=== PATIENT | female | born 1960 | race Caucasian/White ===

== ENCOUNTER 2016-08-09 14:39 | Emergency (ER) | payer OTHER ==
--- NOTE | 2016-08-09 16:33 | RAD ---
INDICATION: Seizure, head injury. COMPARISON: Comparison is made with a prior CT of the brain from December 27, 2012. TECHNIQUE: Contiguous axial sections of the brain were obtained from the skull base to the vertex without contrast. FINDINGS: The ventricles, cisterns and sulci are within normal limits. There is a small area of decreased density present within the thalamus on the right side which is unchanged from the prior exam suggestive of an old lacunar infarct. No other focal abnormalities or mass effect are seen. There is no evidence for hemorrhage. There is focal soft tissue swelling, alyssa and air within the scalp in the posterior right parietal region consistent with the patient's history of a laceration injury. No fracture is seen. The visualized portion of the paranasal sinuses and mastoid air cells appear clear. IMPRESSION: 1. NO EVIDENCE FOR ACUTE INTRACRANIAL ABNORMALITY. 2. FINDINGS SUGGESTIVE OF AN OLD LACUNAR INFARCT WITHIN THE RIGHT THALAMUS, UNCHANGED.
[2016-08-09 17:15] LABS: Hematocrit 35 % (35-47); Hemoglobin 11.7 g/dl (12.0-16.0); Mean Corpuscular HGB Conc 34 g/dl (31-36); Mean Corpuscular Hemoglobin 32 pg (27-31); Mean Corpuscular Volume 96 fL (80-97); Mean Platelet Volume 7 um3 (7.4-10.4); Red Blood Count 3.64 10^6/ul (4.0-5.4); Red Cell Distribution Width 13 % (10.5-15); White Blood Count 8.4 10^3/ul (3.5-10.8)
[2016-08-09 17:31] LABS: Albumin 3.9 g/dL (3.2-5.2); BUN/Creatinine Ratio 16.3 (8-20); Calcium 8.6 mg/dL (8.6-10.3); EGFR African American 95.4 (>60); EGFR Non-African American 74.2 (>60); Globulin 3.1 g/dL (2-4); Potassium 3.8 mmol/L (3.5-5.0); Total Bilirubin 0.3 mg/dL (0.2-1.0)
--- NOTE | 2016-08-09 17:44 | ED ---
Head Injury - HPI Summary HPI Summary: 55F presents with head laceration s/p hit head on door from seizure. has history of seizures. She hasn't had a seizure in 4 months. She takes topirmate. She has not missed a dosage. She has a mild headache. She denies any visual changes. She is not on blood thinners. She denies any other compliant. - History Of Current Complaint Chief Complaint: EDLacSutureRecheck Stated Complaint: SEIZURE/HIT HEAD/LAC Time Seen by Provider: 08/09/16 15:23 Pain Intensity: 4 - Allergies/Home Medications Allergies/Adverse Reactions: Allergies Allergy/AdvReac Type Severity Reaction Status Date / Time No Known Allergies Allergy Verified 12/27/12 12:14 PMH/Surg Hx/FS Hx/Imm Hx Endocrine/Hematology History: Denies: Hx Anticoagulant Therapy Neurological History: Reports: Hx Seizures Infectious Disease History: No Infectious Disease History: Denies: Traveled Outside the [place] in Last 30 Days - Family History Known Family History: Positive: Cardiac Disease - Social History Alcohol Use: None Substance Use Type: Reports: None Smoking Status (MU): Never Smoked Tobacco Review of Systems Negative: Fever Negative: Chest Pain Negative: Shortness Of Breath Positive: Other - head laceration Positive: Headache All Other Systems Reviewed And Are Negative: Yes Physical Exam Triage Information Reviewed: Yes Vital Signs On Initial Exam: Initial Vitals Temp Pulse Resp BP Pulse Ox 97.6 F 73 18 114/68 100 08/09/16 14:45 08/09/16 14:45 08/09/16 14:45 08/09/16 14:45 08/09/16 14:45 Vital Signs Reviewed: Yes Appearance: Positive: Well-Appearing Skin: Positive: Warm, Dry, Other - 3cm scalp laceration Head/Face: Positive: Normal Head/Face Inspection Eyes: Positive: Normal, EOMI, YESIKA, Conjunctiva Clear ENT: Positive: Normal ENT inspection, Pharynx normal, TMs normal Neck: Positive: Nontender Respiratory/Lung Sounds: Positive: Clear to Auscultation, Breath Sounds Present Cardiovascular: Positive: Normal, RRR Neurological: Positive: Sensory/Motor Intact, Alert, Oriented to Person Place, Time, CN Intact II-III, Heel to Toe, Finger to Nose - [place] Coma Scale Best Eye Response: 4 - Spontaneous Best Motor Response: 6 - Obeys Commands Best Verbal Response: 5 - Oriented Procedures - Laceration/Wound Repair 1 Location: head Description: Linear Anesthesia: Local, 1.0% Length, Depth and Shape: 3cm Irrigated w/ Saline (ccs): 100 Closure: [place] #__ - 3 Diagnostics - Vital Signs Vital Signs Temp Pulse Resp BP Pulse Ox 08/09/16 15:32 97.6 F 73 18 114/68 100 08/09/16 14:45 97.6 F 73 18 114/68 100 - Laboratory Lab Results: Lab Results 08/09/16 08/09/16 Range/Units 17:06 17:06 WBC 8.4 (3.5-10.8) 10^3/ul RBC 3.64 L (4.0-5.4) 10^6/ul Hgb 11.7 L (12.0-16.0) g/dl Hct 35 (35-47) % MCV 96 (80-97) fL MCH 32 H (27-31) pg MCHC 34 (31-36) g/dl RDW 13 (10.5-15) % Plt Count 224 (150-450) 10^3/ul MPV 7 L (7.4-10.4) um3 Neut % (Auto) 76.6 (38-83) % Lymph % (Auto) 16.1 L (25-47) % O'Brien % (Auto) 6.0 (1-9) % Eos % (Auto) 0.8 (0-6) % Baso % (Auto) 0.5 (0-2) % Absolute Neuts (auto) 6.4 (1.5-7.7) 10^3/ul Absolute Lymphs (auto) 1.3 (1.0-4.8) 10^3/ul Absolute Monos (auto) 0.5 (0-0.8) 10^3/ul Absolute Eos (auto) 0.1 (0-0.6) 10^3/ul Absolute Basos (auto) 0 (0-0.2) 10^3/ul Absolute Nucleated RBC 0 10^3/ul Nucleated RBC % 0 Sodium 133 (133-145) mmol/L Potassium 3.8 (3.5-5.0) mmol/L Chloride 103 (101-111) mmol/L Carbon Dioxide 25 (22-32) mmol/L Anion Gap 5 (2-11) mmol/L BUN 13 (6-24) mg/dL Creatinine 0.80 (0.51-0.95) mg/dL Est GFR ( Amer) 95.4 (>60) Est GFR (Non-Af Amer) 74.2 (>60) BUN/Creatinine Ratio 16.3 (8-20) Glucose 99 (70-100) mg/dL Calcium 8.6 (8.6-10.3) mg/dL Total Bilirubin 0.30 (0.2-1.0) mg/dL AST 18 (13-39) U/L ALT 14 (7-52) U/L Alkaline Phosphatase 100 (34-104) U/L Total Protein 7.0 (6.4-8.9) g/dL Albumin 3.9 (3.2-5.2) g/dL Globulin 3.1 (2-4) g/dL Albumin/Globulin Ratio 1.3 (1-3) Result Diagrams: 08/09/16 17:06 08/09/16 17:06 Lab Statement: Any lab studies that have been ordered have been reviewed, and results considered in the medical decision making process. - CT brain CT Interpretation: No Acute Changes - IMPRESSION: 1. NO EVIDENCE FOR ACUTE INTRACRANIAL ABNORMALITY. 2. FINDINGS SUGGESTIVE OF AN OLD LACUNAR INFARCT WITHIN THE RIGHT THALAMUS, UNCHANGED. CT Interpretation Completed By: Radiologist Head Injury Course/Dx Course Of Treatment: 55F presents with head laceration s/p having a seizure. did not miss any of her seizure medication and has not had a seizure in 4 days. hit head on door frame when had the seizure. normal neuro exam. 3 alyssa placed on scalp laceration. CT head normal. labs rbc low will have follow up with primary and neurologist. patient understands and agrees with plan - Diagnoses Differential Diagnosis/HQI/PQRI: Concussion With LOC, Intracranial Bleed, Laceration Provider Diagnoses: Seizure, Scalp laceration Discharge - Discharge Plan Condition: Good Disposition: HOME Patient Education Materials: Staple Care (ED) Referrals: Ciro Bahena MD [Primary Care Provider] - Additional Instructions: Take Tylenol for pain Do not scrub staple area Return to ED, urgent care, or primary in 7-10 days to have alyssa removed Follow up with neurology within 5 days Return to ED if develop signs of infection, severe headache, or any new or worsening symptoms
[2016-08-09 18:31] VITALS: BP 113/64
== END 2016-08-09 18:29 | disposition home or self-care (01) ==
LOC: ED 14:39
DX: S01.91XA Laceration without foreign body of unspecified part of head, initial encounter (principal); R51 Headache; W19.XXXA Unspecified fall, initial encounter; Y93.9 Activity, unspecified; Y92.9 Unspecified place or not applicable; Y99.9 Unspecified external cause status
CPT/HCPCS: 12002; 36415; 70450; 80053; 80201; 85025; 99281

== ENCOUNTER 2016-12-21 10:38 | Emergency (ER) | payer OTHER ==
[2016-12-21 11:49] LABS: Hematocrit 34 % (35-47); Hemoglobin 11.7 g/dl (12.0-16.0); Mean Corpuscular HGB Conc 34 g/dl (31-36); Mean Corpuscular Hemoglobin 33 pg (27-31); Mean Corpuscular Volume 97 fL (80-97); Mean Platelet Volume 7 um3 (7.4-10.4); Red Blood Count 3.55 10^6/ul (4.0-5.4); Red Cell Distribution Width 13 % (10.5-15); White Blood Count 4.2 10^3/ul (3.5-10.8)
[2016-12-21 12:01] LABS: Albumin 3.7 g/dL (3.2-5.2); BUN/Creatinine Ratio 11.9 (8-20); Calcium 8.7 mg/dL (8.6-10.3); EGFR African American 90.2 (>60); EGFR Non-African American 70.1 (>60); Globulin 3.2 g/dL (2-4); Magnesium 2.1 mg/dL (1.9-2.7); Potassium 3.6 mmol/L (3.5-5.0); Total Bilirubin 0.3 mg/dL (0.2-1.0); Total Protein 6.9 g/dL (6.4-8.9)
[2016-12-21 12:49] LABS: Carbamazepine 12.3 mcg/mL (4.0-12.0)
[2016-12-21 12:58] LABS: TSH (Thyroid Stimulating Horm) 7.26 mcIU/mL (0.34-5.60)
[2016-12-21 13:45] VITALS: BP 101/65
[2016-12-21 14:12] LABS: Urine Bacteria Absent (Absent); Urine Bilirubin Negative (Negative); Urine Glucose Negative (Negative); Urine Nitrite Negative (Negative)
--- NOTE | 2016-12-21 16:14 | ED ---
Darrion Higgins Benjamin, scribed for Lew Murcia MD on 12/21/16 at 1105 . Altered Mental Status - HPI Summary HPI Summary: 55yo female RODOLFOA after having a witnessed Sz episode today at work. Pt doesnt recall her episode and pt didnt remember warning signs prior to her episodes. Pt states that stress is usually the trigger, and admits that she has been stressed lately. Hx of epilepsy but no changes in epileptic medications. - History Of Current Complaint Stated Complaint: SEIZURE Time Seen by Provider: 12/21/16 10:52 Hx Obtained From: Patient, Family/Antique Refinisher - Onset/Duration: Resolved Timing: Intermittent Severity Initially: Mild Severity Currently: None Character: Responsiveness - Seizure Aggravating Factor(s): Other - stress Associated Signs And Symptoms: Positive: Seizure - Allergies/Home Medications Allergies/Adverse Reactions: Allergies Allergy/AdvReac Type Severity Reaction Status Date / Time No Known Allergies Allergy Verified 12/27/12 12:14 PMH/Surg Hx/FS Hx/Imm Hx Endocrine/Hematology History: Denies: Hx Anticoagulant Therapy Neurological History: Reports: Hx Seizures - epilepsy Infectious Disease History: Yes Infectious Disease History: Denies: Traveled Outside the [place] in Last 30 Days - Family History Known Family History: Positive: Cardiac Disease - Social History Occupation: Employed Full-time Lives: With Family Alcohol Use: None Substance Use Type: Reports: None Smoking Status (MU): Never Smoked Tobacco Review of Systems Constitutional: Negative Eyes: Negative ENT: Negative Cardiovascular: Negative Respiratory: Negative Gastrointestinal: Negative Genitourinary: Negative Musculoskeletal: Negative Skin: Negative Neurological: Negative Psychological: Normal All Other Systems Reviewed And Are Negative: Yes Physical Exam Triage Information Reviewed: Yes Vital Signs On Initial Exam: Initial Vitals BP 109/66 12/21/16 10:53 Vital Signs Reviewed: Yes Appearance: Positive: Well-Appearing, No Pain Distress, Well-Nourished Skin: Positive: Warm, Skin Color Reflects Adequate Perfusion, Dry Head/Face: Positive: Normal Head/Face Inspection Eyes: Positive: Normal, EOMI ENT: Positive: Normal ENT inspection, Hearing grossly normal Neck: Positive: Supple, Nontender Respiratory/Lung Sounds: Positive: Clear to Auscultation, Breath Sounds Present Cardiovascular: Positive: RRR, Pulses are Symmetrical in both Upper and Lower Extremities Abdomen Description: Positive: Nontender, Soft Bowel Sounds: Positive: Present Musculoskeletal: Positive: Strength/ROM Intact Neurological: Positive: Sensory/Motor Intact, Alert, Oriented to Person Place, Time Psychiatric: Positive: Affect/Mood Appropriate Diagnostics - Vital Signs Vital Signs Temp Pulse Resp BP Pulse Ox 12/21/16 10:56 81 97 12/21/16 10:54 97.9 F 81 20 109/66 96 12/21/16 10:53 109/66 - Laboratory Lab Results: Lab Results 12/21/16 12/21/16 12/21/16 Range/Units 11:35 11:35 11:35 WBC 4.2 (3.5-10.8) 10^3/ul RBC 3.55 L (4.0-5.4) 10^6/ul Hgb 11.7 L (12.0-16.0) g/dl Hct 34 L (35-47) % MCV 97 (80-97) fL MCH 33 H (27-31) pg MCHC 34 (31-36) g/dl RDW 13 (10.5-15) % Plt Count 254 (150-450) 10^3/ul MPV 7 L (7.4-10.4) um3 Neut % (Auto) 54.6 (38-83) % Lymph % (Auto) 32.8 (25-47) % [place] % (Auto) 9.3 H (1-9) % Eos % (Auto) 2.6 (0-6) % Baso % (Auto) 0.7 (0-2) % Absolute Neuts (auto) 2.3 (1.5-7.7) 10^3/ul Absolute Lymphs (auto) 1.4 (1.0-4.8) 10^3/ul Absolute Monos (auto) 0.4 (0-0.8) 10^3/ul Absolute Eos (auto) 0.1 (0-0.6) 10^3/ul Absolute Basos (auto) 0 (0-0.2) 10^3/ul Absolute Nucleated RBC 0 10^3/ul Nucleated RBC % 0 INR (Anticoag Therapy) 1.00 (0.89-1.11) Sodium 133 (133-145) mmol/L Potassium 3.6 (3.5-5.0) mmol/L Chloride 103 (101-111) mmol/L Carbon Dioxide 23 (22-32) mmol/L Anion Gap 7 (2-11) mmol/L BUN 10 (6-24) mg/dL Creatinine 0.84 (0.51-0.95) mg/dL Est GFR ( Amer) 90.2 (>60) Est GFR (Non-Af Amer) 70.1 (>60) BUN/Creatinine Ratio 11.9 (8-20) Glucose 106 H (70-100) mg/dL Lactic Acid (0.5-2.0) mmol/L Calcium 8.7 (8.6-10.3) mg/dL Magnesium 2.1 (1.9-2.7) mg/dL Total Bilirubin 0.30 (0.2-1.0) mg/dL AST 16 (13-39) U/L ALT 11 (7-52) U/L Alkaline Phosphatase 88 (34-104) U/L Total Protein 6.9 (6.4-8.9) g/dL Albumin 3.7 (3.2-5.2) g/dL Globulin 3.2 (2-4) g/dL Albumin/Globulin Ratio 1.2 (1-3) TSH 7.26 H (0.34-5.60) mcIU/mL Urine Color Urine Appearance Urine pH (5-9) Ur Specific [place] (1.010-1.030) Urine Protein (Negative) Urine Ketones (Negative) Urine Blood (Negative) Urine Nitrate (Negative) Urine Bilirubin (Negative) Urine Urobilinogen (Negative) Ur Leukocyte Esterase (Negative) Urine WBC (Auto) (Absent) Urine RBC (Auto) (Absent) Ur Squamous Epith Cells (Absent) Urine Bacteria (Absent) Urine Glucose (Negative) Carbamazepine 12.3 H (4.0-12.0) mcg/mL 12/21/16 12/21/16 Range/Units 11:35 13:45 WBC (3.5-10.8) 10^3/ul RBC (4.0-5.4) 10^6/ul Hgb (12.0-16.0) g/dl Hct (35-47) % MCV (80-97) fL MCH (27-31) pg MCHC (31-36) g/dl RDW (10.5-15) % Plt Count (150-450) 10^3/ul MPV (7.4-10.4) um3 Neut % (Auto) (38-83) % Lymph % (Auto) (25-47) % [place] % (Auto) (1-9) % Eos % (Auto) (0-6) % Baso % (Auto) (0-2) % Absolute Neuts (auto) (1.5-7.7) 10^3/ul Absolute Lymphs (auto) (1.0-4.8) 10^3/ul Absolute Monos (auto) (0-0.8) 10^3/ul Absolute Eos (auto) (0-0.6) 10^3/ul Absolute Basos (auto) (0-0.2) 10^3/ul Absolute Nucleated RBC 10^3/ul Nucleated RBC % INR (Anticoag Therapy) (0.89-1.11) Sodium (133-145) mmol/L Potassium (3.5-5.0) mmol/L Chloride (101-111) mmol/L Carbon Dioxide (22-32) mmol/L Anion Gap (2-11) mmol/L BUN (6-24) mg/dL Creatinine (0.51-0.95) mg/dL Est GFR ( Amer) (>60) Est GFR (Non-Af Amer) (>60) BUN/Creatinine Ratio (8-20) Glucose (70-100) mg/dL Lactic Acid 1.4 (0.5-2.0) mmol/L Calcium (8.6-10.3) mg/dL Magnesium (1.9-2.7) mg/dL Total Bilirubin (0.2-1.0) mg/dL AST (13-39) U/L ALT (7-52) U/L Alkaline Phosphatase (34-104) U/L Total Protein (6.4-8.9) g/dL Albumin (3.2-5.2) g/dL Globulin (2-4) g/dL Albumin/Globulin Ratio (1-3) TSH (0.34-5.60) mcIU/mL Urine Color Yellow Urine Appearance Turbid Urine pH 7.0 (5-9) Ur Specific [place] 1.013 (1.010-1.030) Urine Protein Negative (Negative) Urine Ketones Negative (Negative) Urine Blood Negative (Negative) Urine Nitrate Negative (Negative) Urine Bilirubin Negative (Negative) Urine Urobilinogen Negative (Negative) Ur Leukocyte Esterase Trace H (Negative) Urine WBC (Auto) Absent (Absent) Urine RBC (Auto) Trace(0-2/hpf) (Absent) Ur Squamous Epith Cells Present H (Absent) Urine Bacteria Absent (Absent) Urine Glucose Negative (Negative) Carbamazepine (4.0-12.0) mcg/mL Result Diagrams: 12/21/16 11:35 12/21/16 11:35 Lab Statement: Any lab studies that have been ordered have been reviewed, and results considered in the medical decision making process. Altered Mental Statu Course/Dx - Course Course Of Treatment: Reviewed pts list of medications and allergies. Blood pressure noted. Assessment/Plan: Ms. Burdick presented with one of her rare (biannual) seizures. She was nontoxic in appearance and her labs and vitals were normal. She is on significant anticonvulsant doses with a supratherapeutic carbamazepine level and will be D/C'd with no med cahnges and a recommendation for F/U with Dr. Garber. - Diagnoses Discharge Diagnoses: Seizure Discharge - Discharge Plan Condition: Stable Disposition: HOME Patient Education Materials: Epilepsy (ED) Referrals: Susie Garber MD [Medical Doctor] - The documentation as recorded by the Darrion mckeon Benjamin accurately reflects the service I personally performed and the decisions made by , Lew Murcia MD.
== END 2016-12-21 13:54 | disposition home or self-care (01) ==
LOC: ED 10:38
DX: R56.9 Unspecified convulsions (principal)
CPT/HCPCS: 36415; 80053; 80156; 81003; 81015; 83605; 83735; 84443; 85025; 85610; 87086; 99283

== ENCOUNTER 2017-05-30 06:37 | Emergency (ER) | payer OTHER ==
[2017-05-30 07:54] LABS: ABS Basophils 0 10^3/ul (0-0.2); ABS Eosinophils 0.2 10^3/ul (0-0.6); ABS Lymphocytes 1.9 10^3/ul (1.0-4.8); ABS Monocytes 0.3 10^3/ul (0-0.8); ABS Neutrophils 1.4 10^3/ul (1.5-7.7); ABS Nucleated RBC 0 10^3/ul; Eosinophil % 4.3 % (0-6); Hematocrit 38 % (35-47); Hemoglobin 12.8 g/dl (12.0-16.0); Lymphocyte % 50.2 % (25-47); Mean Corpuscular HGB Conc 34 g/dl (31-36); Mean Corpuscular Hemoglobin 33 pg (27-31); Mean Corpuscular Volume 98 fL (80-97); Mean Platelet Volume 7 um3 (7.4-10.4); Nucleated Red Blood Cells % 0.2; Platelet Count 254 10^3/ul (150-450); Red Blood Count 3.86 10^6/ul (4.0-5.4); Red Cell Distribution Width 13 % (10.5-15); White Blood Count 3.8 10^3/ul (3.5-10.8)
[2017-05-30 08:05] LABS: EGFR Non-African American 54.6 (>60)
--- NOTE | 2017-05-30 08:21 | RAD ---
INDICATION: Weakness COMPARISON: August 09, 2016 TECHNIQUE: Noncontrast axial source images were acquired from the skull base to the vertex. FINDINGS: Ventricles/sulci: The ventricles and cisterns are normal in size and configuration for age. Brain parenchyma: There is no acute focal parenchymal finding, evidence of intracranial mass, or intracranial mass effect. There is a tiny lacunar type infarct in the right thalamus, unchanged. Intracranial hemorrhage:None. Extra-axial spaces: There are no abnormal extra axial fluid collections or evidence of extra-axial mass. Calvarium: There is no calvarial fracture or other calvarial abnormality. Scalp: There is no evidence of scalp or extracalvarial soft tissue abnormality. Paranasal sinuses/mastoid: The paranasal sinuses and mastoid air cells are clear. Other: None. IMPRESSION: No acute intracranial findings.
--- NOTE | 2017-05-30 08:25 | RAD ---
INDICATION: LEFT side neck pain since yesterday. Slept wrong. Persistent symptoms. COMPARISON: No relevant prior exams available on the [facility] [place] for comparison. TECHNIQUE: Multidetector CT images foramen magnum to lung apices without contrast. Multiplanar reformation. REPORT: Heterogeneous thyroid gland with mildly enlarged LEFT thyroid lobe with dominant 1.1 cm hypodense nodule. Normal vertebral alignment accounting for exam positioning without spondylolisthesis or subluxation at any level. Negative for cervical vertebral body or posterior element fracture. Negative for paravertebral hematoma. Degenerative spondylosis and facet joint osteoarthritis at multiple levels. At C5-C6 there is advanced disc space narrowing and mild dorsal disc osteophyte complex with only minimal impression on the ventral margin of the thecal sac. Congenitally generous pedicles mitigate against acquired central canal stenosis. Uncinate process spurring and facet joint osteoarthritis results in slight RIGHT and moderately severe LEFT osseous foraminal stenosis. IMPRESSION: 1. No evidence for traumatic cervical spine injury. 2. Multilevel degenerative spondylosis and facet joint osteoarthritis most advanced at the C5-C6 level where there is resulting slight RIGHT and moderately severe LEFT osseous foraminal stenosis. 3. If not previously performed with no relevant prior exams available on the [facility] consider thyroid ultrasound for further assessment of noted thyroid nodule.
[2017-05-30] MEDS ORDERED: Ketorolac INJ* 30 MG/ML 1 ML VIAL IM ONE (08:43)
[2017-05-30] MEDS ORDERED: Orphenadrine Citrate IV* 30 MG/ML 2 ML VIAL IM ONE (08:43)
[2017-05-30 09:06] LABS: Urine Appearance Cloudy; Urine Blood Negative (Negative); Urine Color Amber; Urine Ketones Negative (Negative); Urine Protein 1+(30 mg/dL) (Negative); Urine Specific Gravity 1.019 (1.010-1.030); Urine Urobilinogen Negative (Negative)
[2017-05-30 09:37] VITALS: BP 99/64
--- NOTE | 2017-05-30 15:58 | ED ---
Jane Higgins Thomas, scribed for Bill Read MD on 05/30/17 at 0711 . Neck Pain - HPI Summary HPI Summary: The patient is a 56 year old female complaining of left-sided neck pain that was present yesterday when she woke up. The pain is rated 6/10. The pain is aggravated by movement of her head to the left. The patient reports that this morning when she woke at 06:00, she had difficulty standing and nearly collapsed. Per , the patient had a one-minute episode where she could not see that spontaneously resolved. She denies any trauma and difficulty swallowing. The patient was recently diagnosed with a UTI and is on a course of antibiotics. - History of Current Complaint Chief Complaint: EDNeckComplaint Stated Complaint: NECK PAIN/SYNCOPE Hx Obtained From: Patient Onset/Duration Of Injury/Symptoms: Days - 1 Mechanism Of Injury: No Known Trauma Timing: Constant Onset/Duration: Started days ago - 1, Still Present Severity Currently: Moderate Pain Intensity: 6 Pain Scale Used: 0-10 Numeric Location: Discrete At: - left-sided Aggravating Factors: Movement Alleviating Factors: Nothing Associated Signs & Symptoms: Positive: Negative - difficulty swallowing. Negative: Fever - Allergies/Home Medications Allergies/Adverse Reactions: Allergies Allergy/AdvReac Type Severity Reaction Status Date / Time No Known Allergies Allergy Verified 05/05/17 12:26 PMH/Surg Hx/FS Hx/Imm Hx Endocrine/Hematology History: Denies: Hx Anticoagulant Therapy Musculoskeletal History: Denies: Hx Osteoporosis Neurological History: Reports: Hx Seizures - epilepsy - Cancer History Hx Chemotherapy: No Hx Radiation Therapy: No Infectious Disease History: No Infectious Disease History: Denies: Traveled Outside the [place] in Last 30 Days - Family History Known Family History: Positive: Cardiac Disease - Social History Alcohol Use: None Substance Use Type: Reports: None Smoking Status (MU): Never Smoked Tobacco Review of Systems Negative: Fever Positive: Other - loss of vision for one minute Negative: Other - difficulty swallowing Positive: Other - Neck pain Positive: Syncope - episode of difficulty standing, near-collapse All Other Systems Reviewed And Are Negative: Yes Physical Exam - Summary Physical Exam Summary: VITAL SIGNS: Reviewed. GENERAL: Patient is a well-developed and nourished female who is lying comfortable in the stretcher. Patient is not in any acute respiratory distress. HEAD AND FACE: No signs of trauma. No ecchymosis, hematomas or skull depressions. No sinus tenderness. EYES: PERRLA, EOMI x 2, No injected conjunctiva, no nystagmus. EARS: Hearing grossly intact. Ear canals and tympanic membranes are within normal limits. MOUTH: Oropharynx within normal limits. NECK: She has spasm in trapezius and sternocleidomastoid~muscles. Trachea is midline, no adenopathy, no JVD, no carotid bruit, and no c-spine tenderness. CHEST: Symmetric, no tenderness at palpation LUNGS: Clear to auscultation bilaterally. No wheezing or crackles. CVS: Regular rate and rhythm, S1 and S2 present, no murmurs or gallops appreciated. ABDOMEN: Soft, non-tender. No signs of distention. No rebound no guarding, and no masses palpated. Bowel sounds are normal. EXTREMITIES: FROM in all major joints, no edema, no cyanosis or clubbing. NEURO: Alert and oriented x 3. No acute neurological deficits. Speech is normal and follows commands. SKIN: Dry and warm Triage Information Reviewed: Yes Vital Signs On Initial Exam: Initial Vitals Temp Pulse Resp BP Pulse Ox 98.7 F 90 16 80/60 99 05/30/17 06:45 05/30/17 06:45 05/30/17 06:45 05/30/17 06:45 05/30/17 06:45 Vital Signs Reviewed: Yes - Helene Coma Scale Best Eye Response: 4 - Spontaneous Best Motor Response: 6 - Obeys Commands Best Verbal Response: 5 - Oriented Coma Scale Total: 15 Diagnostics - Vital Signs Vital Signs Temp Pulse Resp BP Pulse Ox 05/30/17 07:03 66 14 99 05/30/17 07:02 118/86 05/30/17 06:45 98.7 F 90 16 80/60 99 - Laboratory Result Diagrams: 05/30/17 07:32 05/30/17 07:32 Lab Statement: Any lab studies that have been ordered have been reviewed, and results considered in the medical decision making process. - CT CT Brain CT Interpretation: No Acute Changes - No acute intracranial findings. Dr. Read has reviewed this report. CT Interpretation Completed By: Radiologist CT C-Spine CT Interpretation: No Acute Changes - 1. No evidence for traumatic cervical spine injury. 2. Multilevel degenerative spondylosis and facet joint osteoarthritis most advanced at the C5-C6 level where there is resulting slight RIGHT and moderately severe LEFT osseous foraminal stenosis. 3. If not previously performed with no relevant prior exams available on the [facility] consider thyroid ultrasound for further assessment of noted thyroid nodule. Dr. Read has reviewed this report. CT Interpretation Completed By: Radiologist - EKG 07:26 Cardiac Rate: NL EKG Rhythm: Sinus Rhythm - at 63 BPM EKG Interpretation: No ST elevations. Normal axis. Neck Course/Dx - Course Assessment/Plan: The patient is a 56 year old female complaining of left-sided neck pain that was present yesterday when she woke up. The patient reports that this morning when she woke at 06:00, she had difficulty standing and nearly collapsed. Test results are without significant abnormalities. Urinalysis is contaminated CT Brain is negative for acute findings. CT C-Spin shows 1. No evidence for traumatic cervical spine injury. 2. Multilevel degenerative spondylosis and facet joint osteoarthritis most advanced at the C5-C6 level where there is resulting slight RIGHT and moderately severe LEFT osseous foraminal stenosis. 3. If not previously performed with no relevant prior exams available on the [facility] consider thyroid ultrasound for further assessment of noted thyroid nodule. I believe the patient has torticollis, which is causing the neck pain. However, the patient reports difficulty ambulating and near- syncope, so I did a head CT that was negative. The patient will be discharged home to follow up with primary care. The patient was given Toradol and Norflex for the pain. After these medications, the patient feels better and will be discharged home. - Diagnoses Provider Diagnoses: Torticollis Discharge - Discharge Plan Condition: Stable Disposition: HOME Prescriptions: Cyclobenzaprine TAB* [Flexeril 10 MG TAB*] 10 mg PO TID #12 tab Ibuprofen TAB* [Motrin TAB* 800 MG] 800 mg PO ONCE #20 tab Patient Education Materials: Spasmodic Torticollis (ED) Forms: *Work Release Referrals: Ciro Bahena MD [Primary Care Provider] - 3 Days Additional Instructions: Follow up with your primary care physician in three days. Return to the emergency department for any new or worsening symptoms. The documentation as recorded by the Jane mckeon Thomas accurately reflects the service I personally performed and the decisions made by Jacek pratt Walter, MD.
== END 2017-05-30 09:36 | disposition home or self-care (01) ==
LOC: ED 06:37
DX: M43.6 Torticollis (principal); M54.2 Cervicalgia; R55 Syncope and collapse
CPT/HCPCS: 36415; 70450; 72125; 80053; 81003; 81015; 84484; 85025; 85610; 87086; 93005; 96372; 99283; J1885; J2360

== ENCOUNTER 2017-08-24 10:30 | Emergency (ER) | payer SELFPAY ==
[2017-08-24 11:19] LABS: ABS Basophils 0 10^3/ul (0-0.2); ABS Eosinophils 0.1 10^3/ul (0-0.6); ABS Lymphocytes 1.5 10^3/ul (1.0-4.8); ABS Monocytes 0.3 10^3/ul (0-0.8); ABS Neutrophils 2.7 10^3/ul (1.5-7.7); ABS Nucleated RBC 0 10^3/ul; Eosinophil % 2.3 % (0-6); Hematocrit 39 % (35-47); Hemoglobin 13.3 g/dl (12.0-16.0); Lymphocyte % 32.7 % (25-47); Mean Corpuscular HGB Conc 34 g/dl (31-36); Mean Corpuscular Hemoglobin 34 pg (27-31); Mean Corpuscular Volume 99 fL (80-97); Mean Platelet Volume 6.7 um3 (7.4-10.4); Nucleated Red Blood Cells % 0.1; Platelet Count 245 10^3/ul (150-450); Red Blood Count 3.92 10^6/ul (4.0-5.4); Red Cell Distribution Width 13 % (10.5-15); White Blood Count 4.7 10^3/ul (3.5-10.8)
[2017-08-24 11:47] LABS: EGFR Non-African American 68.9 (>60)
--- NOTE | 2017-08-24 12:53 | RAD ---
INDICATION: Head injury. COMPARISON: Comparison is made with a prior study from May 30, 2017. TECHNIQUE: Contiguous axial sections of the brain were obtained from the skull base to the vertex without contrast. FINDINGS: The ventricles, cisterns and sulci are within normal limits. There is a small lacunar infarct present in the thalamus on the right side better seen on the prior exam and unchanged significantly. No other focal abnormality or mass effect is seen. There is no evidence for hemorrhage. No significant focal osseous abnormality is seen. The visualized portion of the paranasal sinuses and mastoid air cells appear clear. IMPRESSION: NO EVIDENCE FOR ACUTE INTRACRANIAL ABNORMALITY.
--- NOTE | 2017-08-24 13:42 | RAD ---
HISTORY: Chest pain, subacute trauma COMPARISONS: None VIEWS: 7, Frontal and oblique views of the left and right hemithorax. FINDINGS: There is no displaced rib fracture or pneumothorax. The visualized lungs are clear. There is a mild scoliotic curvature of the spine with mild degenerative changes. IMPRESSION: NO DISPLACED RIB FRACTURE OR PNEUMOTHORAX.
[2017-08-24 14:26] VITALS: BP 98/63
--- NOTE | 2017-09-08 14:59 | ED ---
Sawyer Higgins Rebecca, scribed for Adelso Hrat on 08/24/17 at 1152 . HPI Chest Pain - HPI Summary HPI Summary: Pt is a 56 y/o F who presents to ED c/o CP for 2 days s/p seizure and fall. On Monday, 2 days ago, right before 1600 she had a seizure while at work, causing her to fall down 4 steps. She landed on her chest, hitting her R elbow and abraded the R knee. Positive LOC during seizure. Chest pain is located in the midsternal region and is severe, ranked 10/10 on triage. Has not treated the pain with any medication. Sx aggravated by deep breaths, alleviated by nothing. Additionally c/o head pain. Has not had a seizure in "a while" and is compliant with medication. No PMHx CAD and has never had a stress test. - History of Current Complaint Chief Complaint: EDChestWallPain Time Seen by Provider: 08/24/17 11:39 Hx Obtained From: Patient Onset/Duration: Started Days Ago - 2 days, Still Present Current Severity: Severe Pain Intensity: 10 Pain Scale Used: 0-10 Numeric Chest Pain Location: Mid Sternal Aggravating Factor(s): Deep Breaths Alleviating Factor(s): Nothing Associated Signs and Symptoms: Positive: Other: - Head pain - Allergy/Home Medications Allergies/Adverse Reactions: Allergies Allergy/AdvReac Type Severity Reaction Status Date / Time No Known Allergies Allergy Verified 08/24/17 10:44 Home Medications: Home Medications carBAMazepine TAB(*) [TEGretol TAB(*)] 200 mg PO BEDTIME 08/24/17 [History Confirmed 08/24/17] carBAMazepine TAB(*) [TEGretol TAB(*)] 200 mg PO TID 08/24/17 [History Confirmed 08/24/17] PMH/Surg Hx/FS Hx/Imm Hx Endocrine/Hematology History: Denies: Hx Anticoagulant Therapy Musculoskeletal History: Denies: Hx Osteoporosis Neurological History: Reports: Hx Seizures - epilepsy - Cancer History Hx Chemotherapy: No Hx Radiation Therapy: No Infectious Disease History: No Infectious Disease History: Denies: Traveled Outside the [place] in Last 30 Days - Family History Known Family History: Positive: Cardiac Disease - Social History Alcohol Use: None Substance Use Type: Reports: None Smoking Status (MU): Never Smoked Tobacco Review of Systems Positive: Other - head pain Positive: Chest Pain Positive: Other - R elbow pain Positive: Bruising - R elbow, Other - abrasion on R knee Neurological: Other - seizure with LOC - 2 days ago All Other Systems Reviewed And Are Negative: Yes Physical Exam - Summary Physical Exam Summary: Appearance: Well appearing, no pain distress Skin: warm, dry, reflects adequate perfusion, bruise over the right elbow and right knee Head/face: mild tenderness over the right side of the scalp Eyes: EOMI, YESIKA ENT: normal Neck: supple, non-tender Respiratory: CTA, breath sounds present Cardiovascular: RRR, pulses symmetrical Abdomen: non-tender, soft Bowel: present Musculoskeletal: tenderness over the chest, strength/ROM intact Neuro: normal, sensory motor intact, A&Ox3 GCS: 15 Triage Information Reviewed: Yes Vital Signs On Initial Exam: Initial Vitals Temp Pulse Resp BP Pulse Ox 97.3 F 84 16 111/74 99 08/24/17 10:40 08/24/17 10:40 08/24/17 10:40 08/24/17 10:40 08/24/17 10:40 Vital Signs Reviewed: Yes Diagnostics - Vital Signs Vital Signs Temp Pulse Resp BP Pulse Ox 08/24/17 10:40 97.3 F 84 16 111/74 99 - Laboratory Lab Results: Lab Results 08/24/17 Range/Units 11:11 WBC 4.7 (3.5-10.8) 10^3/ul RBC 3.92 L (4.0-5.4) 10^6/ul Hgb 13.3 (12.0-16.0) g/dl Hct 39 (35-47) % MCV 99 H (80-97) fL MCH 34 H (27-31) pg MCHC 34 (31-36) g/dl RDW 13 (10.5-15) % Plt Count 245 (150-450) 10^3/ul MPV 6.7 L (7.4-10.4) um3 Neut % (Auto) 57.9 (38-83) % Lymph % (Auto) 32.7 (25-47) % Bent % (Auto) 6.4 (0-7) % Eos % (Auto) 2.3 (0-6) % Baso % (Auto) 0.7 (0-2) % Absolute Neuts (auto) 2.7 (1.5-7.7) 10^3/ul Absolute Lymphs (auto) 1.5 (1.0-4.8) 10^3/ul Absolute Monos (auto) 0.3 (0-0.8) 10^3/ul Absolute Eos (auto) 0.1 (0-0.6) 10^3/ul Absolute Basos (auto) 0 (0-0.2) 10^3/ul Absolute Nucleated RBC 0 10^3/ul Nucleated RBC % 0.1 Result Diagrams: 08/24/17 11:11 08/24/17 11:11 Lab Statement: Any lab studies that have been ordered have been reviewed, and results considered in the medical decision making process. - Radiology Rib w/ CXR Xray Interpretation: No Acute Changes - NO DISPLACED RIB FRACTURE OR PNEUMOTHORAX. ED physician reviewed this report. Radiology Interpretation Completed By: Radiologist - CT Brain CT CT Interpretation: No Acute Changes - NO EVIDENCE FOR ACUTE INTRACRANIAL ABNORMALITY. Radiology report reviewed by ED physician. CT Interpretation Completed By: Radiologist - EKG 11:06 Cardiac Rate: NL - 77 bpm EKG Rhythm: Sinus Rhythm EKG Interpretation: No acute changes Re-Evaluation - Re-Evaluation First Eval Re-Evaluation Time: 14:06 Comment: Discussed results, pt is doing well. Chest Pain Course/Dx - Course Assessment/Plan: Pt is a 56 y/o F who presents to ED c/o severe midsternal CP for 2 days s/p seizure and fall. On Monday, 2 days ago, right before 1600 she had a seizure while at work, causing her to fall down 4 steps. She landed on her chest, hitting her R elbow and abraded the R knee. Sx aggravated by deep breaths. Additionally c/o head pain. Has not had a seizure in "a while" and is compliant with medication. No PMHx CAD and has never had a stress test. CXR and brain CT reveal no acute findings. EKG is sinus rhythm with no acute changes. Blood work was done with results including a troponin of 0.00. Upon reevaluation , pt is feeling better. She will be D/C to home with Dx of fall, contusion, musculoskeletal chest pain and seizure with an Rx for motrin. - Diagnoses Provider Diagnoses: Fall, Multiple contusions, Seizure, Musculoskeletal chest pain Discharge - Sign-Out/Discharge Documenting (check all that apply): Discharge/Admit/Transfer - Discharge - Discharge Plan Condition: Stable Disposition: HOME Prescriptions: Ibuprofen TAB* [Motrin TAB* 600 MG] 600 mg PO Q8H PRN #20 tab MDD 3 PRN Reason: Pain Patient Education Materials: Chest Pain (ED), Contusion in Adults (ED), Musculoskeletal Pain (ED) Referrals: Ciro Bahena MD [Primary Care Provider] - 3 Days Additional Instructions: RETURN TO ED FOR ANY NEW OR WORSENING SYMPTOMS. The documentation as recorded by the Sawyer mckeon Rebecca accurately reflects the service I personally performed and the decisions made by Tanner pratt Emmanuel.
== END 2017-08-24 14:32 | disposition home or self-care (01) ==
LOC: ED 10:30
DX: R07.89 Other chest pain (principal); G40.909 Epilepsy, unspecified, not intractable, without status epilepticus; T14.8XXA Other injury of unspecified body region, initial encounter; W10.9XXA Fall (on) (from) unspecified stairs and steps, initial encounter; Y92.9 Unspecified place or not applicable
CPT/HCPCS: 36415; 70450; 71111; 80053; 80156; 84484; 85025; 93005; 99283

== ENCOUNTER → 2017-10-23 12:21 | Day surgery (SDC) | payer OTHER ==
--- NOTE | 2017-10-20 21:11 | HP ---
CC: Dr. Ciro Bahena; Dr. Stapleton; Dr. Kaplan ADMITTING HISTORY AND PHYSICAL: DATE OF ADMISSION: 10/23/17 ADMITTING DIAGNOSES: 1. Left renal calculus. 2. Recurrent urinary tract infections. PLANNED PROCEDURE: Left stent insertion and shockwave lithotripsy of left renal calculus. SURGEON: Dr. Kaplan. HISTORY OF PRESENT ILLNESS: Amber Burdick is a 56-year-old lady who was evaluated for recurrent urinar y tract infections. She has been on Topamax for seizure disorder and Topamax does lead to a higher r isk of kidney stones. Because of this, an ultrasound was obtained and indeed she was noted to have a 1.1 cm calculus in the area of the left renal pelvis. 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 I keely pect that the calculus may be the cause for her recurrent urinary tract infections and she is now charli ng brought in for an attempted treatment of the same. PAST MEDICAL HISTORY: Significant for seizure disorder and recurrent urinary tract infections. PAST SURGICAL HISTORY: Unremarkable. MEDICATIONS: On admission: 1. Carbamazepine 200 mg 2 tablets 4 times a day. 2. Sertraline 50 mg a day. 3. Topamax 300 mg b.i.d. 4. Clonazepam 0.5 mg p.r.n. anxiety. ALLERGIES: No known drug allergies. FAMILY HISTORY: She has 2 brothers who have kidney stones. SOCIAL HISTORY: Smoking history, she is a nonsmoker. REVIEW OF SYSTEMS: She denies any chest pain or shortness of breath. There is no history of diabete s mellitus or any other major systemic illness. PHYSICAL EXAMINATION GENERAL: Reveals a pleasant middle-aged lady. VITAL SIGNS: Blood pressure 108/62; pulse 91 per minute, regular; temperature 97.8; oxygen saturatio n 98% on room air. LUNGS: Clear bilaterally. CARDIOVASCULAR EXAM: Regular rate and rhythm. S1, S2. ABDOMEN: Soft with mild left flank tenderness. IMPRESSION: A 56-year-old lady with recurrent urinary tract infections and a 1.1 cm calculus in the left renal pelvis. She is currently on Keflex prophylaxis because of the recurrent urinary tract in fections, till the calculus can be treated and her last urinalysis in my office on 10/20/17 did not r eveal any evidence of bacteria. PLAN: Left stent insertion and shockwave lithotripsy of left renal calculus. [id number]/[facility] #: [id number]
[~2017-10-23 12:21] MED LIST: Acetaminophen TAB* 325 MG PO PRN; Buffered Lidocaine 0.9% SYRIN* 5 ML/SYR SYRINGE INTRADERM ONE; Dexamethasone IV* 4 MG/ML 1 ML (4 MG) ONE; DiMENhydriNATE IV* 50 MG/ML VIAL IV PUSH PRN; Famotidine IV* 10 MG/ML 2 ML (20 mg) IV ONE; Famotidine IV* 10 MG/ML 2 ML (20 mg) ONE; Furosemide IV* 10 MG/ML 2 ML VIAL (20 MG) ONE; Gentamicin ADULT (*) 160 MG in NS 0.9% 100 ML* 100 ML IVPB ONE; Iohexol 180 (CONTRAST) 10 ML SDV IV ONE; Levofloxacin 500 MG IVPREMIX(* 500 MG/100 ML BAG IVPB ONE; Lidocaine 2% PF * 5 ML VIAL ONE; Midazolam* 1 MG/ML 5 ML VIAL (5 MG) ONE; Naloxone* 0.4 MG/ML 1 ML VIAL IV PRN; Ondansetron INJ* 2 MG/ML VIAL ONE; Phenylephrine IV* 40 MCG/ML 10 ML SYRINGE ONE; Propofol* 10 MG/ML 20 ML BTL IV PUSH ONE; fentaNYL* 50 MCG/ML 2 ML VIAL (100 MCG VIAL) ONE; oxyCODONE TAB* 5 MG TAB PO PRN
[2017-10-23 16:44] VITALS: BP 100/65
--- NOTE | 2017-10-23 17:26 | RAD ---
Indication: Stent insertion, left ureteral calculus. Single view of the abdomen demonstrates left ureteral stent in place. No evidence of abnormal calcifications are noted. Previously identified calcification overlying the midportion of left kidney may be located above the left ureteral stent. There appears to be 2 such calcifications overlying the upper pole of the kidney. IMPRESSION: Left ureteral stent is noted. There are multiple calcifications overlying the left kidney in the upper pole and lower pole left kidney.
--- NOTE | 2017-10-24 13:39 | OP ---
CC: Dr. Ciro Bahena * DATE OF OPERATION: 10/23/17 - [facility] DATE OF : 58 SURGEON: Chente Kaplan MD. ANESTHESIOLOGIST: Dr. Crawford. ANESTHESIA: General. PRE-OP DIAGNOSIS: Left renal calculus. POST-OP DIAGNOSIS: Left renal calculus. OPERATIVE PROCEDURE: 1. Shock-wave lithotripsy of left renal calculus. 2. Cystoscopy, left retrograde, and left stent insertion. INDICATIONS: Amber Burdick is a 56-year-old lady who was evaluated for recurrent urinary tract infection. She was noted to have a 1.1 cm calculus in the left renal pelvis. COMPLICATIONS: None. STENT USED: 7-Maldivian stent, left ureter. POSTOPERATIVE CONDITION: Stable. DESCRIPTION OF PROCEDURE: After induction of general anesthesia, the patient was placed on the lithotripsy table in supine position. The calculus, which was fairly large and dense, was localized using fluoroscopy. Shock-wave lithotripsy was commenced at a rate of 60 shocks per minute. Periodic imaging revealed good localization and fragmentation and a total of 2400 shocks were delivered. Next, the patient was placed in dorsal lithotomy position and cystoscopy was performed. A guidewire was introduced into the left ureter. Retrograde pyelogram revealed fullness of the left collecting system and a 7-Maldivian stent was introduced and positioned under fluoroscopy with good proximal and distal positioning obtained. The bladder was emptied. The patient tolerated the procedure satisfactorily and was transferred back to the recovery area in stable condition. [id number]/[facility] #: [id number] MTDD
== END | disposition home or self-care (01) ==
LOC: OR 12:21
PROVIDERS: ATTEND Urology
DX: N20.0 Calculus of kidney (principal); N39.0 Urinary tract infection, site not specified; G40.89 Other seizures
CPT/HCPCS: 74018; C2625; J1100; J1580; J1940; J1956; J2250; J2405; J2704; J3010

== ENCOUNTER 2018-08-21 10:55 | Emergency (ER) | payer OTHER ==
[2018-08-21] MEDS ORDERED: Ondansetron INJ* 2 MG/ML VIAL IV ONE (11:21)
--- NOTE | 2018-08-21 11:26 | ED ---
GI/ HPI - HPI Summary HPI Summary: Pt is 57 y/o F presenting to the ED with a chief complaint of GI issues. She states that over the last couple of weeks, she intermittently vomits when she eats or takes her pills. She also reports constipation for the last week or so, nausea, decreased appetite, some diffuse abd pain, and weight loss. She denies diarrhea as well as alcohol, smoking, or drug use. - History of Current Complaint Chief Complaint: EDAbdPain Time Seen by Provider: 08/21/18 11:03 Stated Complaint: ABD PAIN/UNSURE OF LAST BM PER PT Hx Obtained From: Patient, Family/Machine Cleaner Onset/Duration: Started Weeks Ago, Still Present Timing: Constant, Lasting Weeks Severity: Moderate Current Severity: Moderate Pain Intensity: 0 Location of Pain: Diffuse Pain Characteristics: Cramping Associated Signs and Symptoms: Positive: Nausea, Vomiting, Constipation, Change in Appetite, Abdominal Pain. Negative: Diarrhea Aggravating Factor(s): Nothing Alleviating Factor(s): Nothing - Allergy/Home Medications Allergies/Adverse Reactions: Allergies Allergy/AdvReac Type Severity Reaction Status Date / Time No Known Allergies Allergy Verified 10/23/17 12:35 Home Medications: Home Medications Carbidopa/Levodop 25/100 MG(*) [Sinemet 25/100 TAB(*)] 1 tab PO TID 08/21/18 [ History Confirmed 08/21/18] Fludrocortisone Acetate TAB* [Florinef TAB*] 0.1 mg PO DAILY 08/21/18 [History Confirmed 08/21/18] Midodrine HCl 10 mg PO TID 08/21/18 [History Confirmed 08/21/18] PMH/Surg Hx/FS Hx/Imm Hx Previously Healthy: Yes Endocrine/Hematology History: Denies: Hx Anticoagulant Therapy Cardiovascular History: Denies: Hx Pacemaker/ICD, Other Cardiovascular Problems/Disorders Respiratory History: Denies: Other Respiratory Problems/Disorders GI History: Denies: Other GI Disorders History: Reports: Hx Kidney Stones - Left renal calculus Denies: Other Problems/Disorders Musculoskeletal History: Denies: Hx Osteoporosis, Other Musculoskeletal History Sensory History: Denies: Hx Contacts or Glasses, Hx Hearing Aid Opthamlomology History: Denies: Hx Contacts or Glasses Neurological History: Reports: Hx Seizures - Epilepsy-last seizure 1 month ago, had one at work-fell down stairs, Other Neuro Impairments/Disorders - 09/14/17 episode of generalized ataxia and slurred speech,seen in ED Psychiatric History: Reports: Hx Anxiety Denies: Hx Panic Disorder - Cancer History Hx Chemotherapy: No Hx Radiation Therapy: No Infectious Disease History: No Infectious Disease History: Denies: Traveled Outside the [place] in Last 30 Days - Family History Known Family History: Positive: Cardiac Disease - Social History Alcohol Use: None Hx Substance Use: No Substance Use Type: Reports: None Hx Tobacco Use: No Smoking Status (MU): Never Smoked Tobacco Review of Systems Positive: Other - decreased appetite, weight loss Positive: Abdominal Pain, Vomiting, Nausea. Negative: Diarrhea All Other Systems Reviewed And Are Negative: Yes Physical Exam - Summary Physical Exam Summary: Appearance: Well appearing, no pain distress Skin: warm, dry, reflects adequate perfusion Head/face: normal Eyes: EOMI, YESIKA ENT: normal Neck: supple, non-tender Respiratory: CTA, breath sounds present Cardiovascular: RRR, pulses symmetrical Abdomen: soft, diffuse abd tenderness Musculoskeletal: normal, strength/ROM intact Neuro: normal, sensory motor intact, A&Ox3 Triage Information Reviewed: Yes Vital Signs On Initial Exam: Initial Vitals Temp Pulse Resp BP Pulse Ox 97.8 F 113 18 121/80 97 08/21/18 10:57 08/21/18 10:57 08/21/18 10:57 08/21/18 10:57 08/21/18 10:57 Vital Signs Reviewed: Yes Diagnostics - Vital Signs Vital Signs Temp Pulse Resp BP Pulse Ox 08/21/18 10:57 97.8 F 113 18 121/80 97 - Laboratory Result Diagrams: 08/21/18 11:41 08/21/18 11:41 Lab Statement: Any lab studies that have been ordered have been reviewed, and results considered in the medical decision making process. - CT CT abd/pelv CT Interpretation Completed By: Radiologist Summary of CT Findings: 1. DIVERTICULOSIS WITHOUT PERICOLONIC INFLAMMATORY CHANGE TO SUGGEST DIVERTICULITIS. 2. LEFT NEPHROLITHIASIS WITHOUT APPRECIABLE HYDRONEPHROSIS. 3. FATTY INFILTRATION OF THE LIVER. ED physician has reviewed this report. - EKG 1109 Cardiac Rate: NL - 91bpm EKG Rhythm: Sinus Rhythm ST Segment: Non-Specific Ectopy: None Summary of EKG Findings: EKG at 1109 shows NSR at 91bpm with nonspecific ST abnormalities and no STEMI. GIGU Course/Dx - Course Course Of Treatment: Pt is 57 y/o F presenting to the ED with a chief complaint of GI issues. She states that over the last couple of weeks, she intermittently vomits when she eats or takes her pills. She also reports constipation for the last week or so, nausea, decreased appetite, some diffuse abd pain, and weight loss. She denies diarrhea. EKG at 1109 shows NSR at 91bpm with nonspecific ST abnormalities and no STEMI. CT abd/pelv shows: 1. DIVERTICULOSIS WITHOUT PERICOLONIC INFLAMMATORY CHANGE TO SUGGEST DIVERTICULITIS. 2. LEFT NEPHROLITHIASIS WITHOUT APPRECIABLE HYDRONEPHROSIS. 3. FATTY INFILTRATION OF THE LIVER. Pt will be sent home with a dx of UTI. She is stable and agreeable with this plan. - Diagnoses Differential Diagnoses - Female: Colitis, Diverticulitis, Metabolic, Urinary Tract Infection Provider Diagnoses: UTI (urinary tract infection) Discharge - Sign-Out/Discharge Documenting (check all that apply): Patient Departure Patient Received Moderate/Deep Sedation with Procedure: No - Discharge Plan Condition: Stable Disposition: HOME Prescriptions: Sulfamethox/Trimethoprim DS* [Bactrim DS 800/160 TAB*] 1 tab PO BID #10 tab Referrals: Ciro Bahena MD [Primary Care Provider] - Additional Instructions: Please follow up with your primary care provider within the next 2-3 days. Return to the ED with any new or worsening symptoms. - Billing Disposition and Condition Condition: STABLE Disposition: Home - Attestation Statements Document Initiated by Macielibcarrington: Yes Documenting Scribe: Amelia Florentino Provider For Whom Celia is Documenting (Include Credential): Adelso Hart MD. Scribe Attestation: Amelia Higgins, scribed for Adelso Hart MD. on 08/21/18 at 1455. Scribe Documentation Reviewed: Yes Provider Attestation: The documentation as recorded by the Amelia mckeon accurately reflects the service I personally performed and the decisions made by , Adelso Hart MD. Status of Scribe Document: Viewed
[2018-08-21] MEDS ORDERED: NS 0.9% 1000 ML** 1,000 ML IV SCH (11:45)
[2018-08-21 11:48] LABS: ABS Eosinophils 0.1 10^3/ul (0-0.6); ABS Lymphocytes 1.5 10^3/ul (1.0-4.8); ABS Monocytes 0.4 10^3/ul (0-0.8); ABS Neutrophils 1.8 10^3/ul (1.5-7.7); Eosinophil % 1.8 %; Hematocrit 40 % (35-47); Hemoglobin 13.8 g/dL (12.0-16.0); Lymphocyte % 40.9 %; Mean Corpuscular HGB Conc 34 g/dL (31-36); Mean Corpuscular Hemoglobin 33 pg (27-31); Mean Corpuscular Volume 97 fL (80-97); Mean Platelet Volume 6.8 fL (7.4-10.4); Nucleated Red Blood Cells % 0.3; Platelet Count 271 10^3/uL (150-450); Red Blood Count 4.15 10^6 /uL (3.70-4.87); Red Cell Distribution Width 14 % (10.5-15); White Blood Count 3.8 10^3/uL (3.5-10.8)
[2018-08-21 12:04] LABS: INR 1.1 (0.82-1.09)
[2018-08-21 12:13] LABS: Albumin 4.6 g/dL (3.2-5.2); Albumin/Globulin Ratio 1.3 (1-3); BUN/Creatinine Ratio 11.4 (8-20); C Reactive Protein 6.9 mg/L (<8.01); Calcium 9.8 mg/dL (8.6-10.3); EGFR African American 90.4 (>60); EGFR Non-African American 74.7 (>60); Globulin 3.5 g/dL (2-4); Potassium 3.5 mmol/L (3.5-5.0); Total Bilirubin 0.6 mg/dL (0.2-1.0); Total Protein 8.1 g/dL (6.4-8.9)
[2018-08-21 12:17] LABS: Urine Appearance Cloudy; Urine Bacteria Absent (Absent); Urine Bilirubin Negative (Negative); Urine Blood 1+ (Negative); Urine Color Amber; Urine Glucose Negative (Negative); Urine Ketones 1+ (Negative); Urine Nitrite Negative (Negative); Urine Protein Negative (Negative); Urine Red Blood Cell 3+(>10/hpf) (Absent); Urine Specific Gravity 1.015 (1.010-1.030); Urine Squamous Epithelial Cell Present (Absent); Urine Transitional Epithelial Present (Absent); Urine Urobilinogen Negative (Negative); Urine White Blood Cell 3+(>20/hpf) (Absent)
[2018-08-21] MEDS ORDERED: Iohexol 300* (CONTRAST) 10 ML SDV IV ONE (12:57)
[2018-08-21 15:17] VITALS: BP 119/74
== END 2018-08-21 15:17 | disposition home or self-care (01) ==
LOC: ED 10:55
DX: N39.0 Urinary tract infection, site not specified (principal); K57.90 Diverticulosis of intestine, part unspecified, without perforation or abscess without bleeding; N20.0 Calculus of kidney; K76.0 Fatty (change of) liver, not elsewhere classified
CPT/HCPCS: 36415; 74177; 80053; 80156; 81003; 81015; 83605; 83690; 84484; 85025; 85610; 86140; 87086; 93005; 96361; 96374; 99283; J2405; Q9967

== ENCOUNTER 2019-02-26 11:08 | Emergency (ER) | payer OTHER ==
[2019-02-26 11:34] VITALS: BP 107/68
--- NOTE | 2019-02-26 13:39 | UC ---
Skin Complaint HPI - HPI Summary HPI Summary: 2-3 WEEKS OF PAINFUL LESION ON THE RIGHT SIDE OF HER HEAD. STATES IT IS GETTING BIGGER. DENIES ANY TRAUMA TO THE AREA. NO PREVIOUS SIMILAR EPISODES. HAS AN ASSOCIATED HEADACHE. DENIES FEVER. - History of Current Complaint Chief Complaint: UCSkin Time Seen by Provider: 02/26/19 13:04 Stated Complaint: SWOLLEN SPOT ON HEAD Hx Obtained From: Patient Onset/Duration: Gradual Onset, Lasting Weeks, Still Present Timing: Constant Onset Severity: Moderate Current Severity: Moderate Pain Intensity: 0 Pain Scale Used: 0-10 Numeric Character: Pain, Raised Aggravating Factor(s): Touch Alleviating Factor(s): Nothing Associated Signs & Symptoms: Positive: Tenderness - Allergy/Home Medications Allergies/Adverse Reactions: Allergies Allergy/AdvReac Type Severity Reaction Status Date / Time No Known Allergies Allergy Verified 02/26/19 11:27 PMH/Surg Hx/FS Hx/Imm Hx Neurological History: Seizures Other Neurological History: PARKINSONS Other History Of: Negative For: Anticoagulant Therapy - Surgical History Surgical History: None - Family History Known Family History: Positive: Cardiac Disease - Social History Alcohol Use: None Substance Use Type: None Smoking Status (MU): Never Smoked Tobacco Household Exposure Type: Cigarettes Review of Systems All Other Systems Reviewed And Are Negative: Yes Constitutional: Positive: Negative Skin: Positive: Other - LESION RIGHT SIDE OF HEAD Respiratory: Positive: Negative Cardiovascular: Positive: Negative Gastrointestinal: Positive: Negative Neurological: Positive: Headache Physical Exam Triage Information Reviewed: Yes Appearance: Well-Appearing, No Pain Distress, Well-Nourished Vital Signs: Initial Vital Signs Temp 97.8 F 02/26/19 11:29 Pulse 79 02/26/19 11:29 Resp 16 02/26/19 11:29 BP 107/68 02/26/19 11:29 Pulse Ox 100 02/26/19 11:29 Vital Signs Reviewed: Yes Eyes: Positive: Conjunctiva Clear ENT: Positive: Hearing grossly normal Neck: Positive: Supple, Nontender, Enlarged Nodes @ - SHOTTY RIGHT POSTERIOR CERVICAL LAD Respiratory: Positive: No respiratory distress, No accessory muscle use Cardiovascular: Positive: Pulses Normal Abdomen Description: Positive: Soft Musculoskeletal: Positive: No Edema Neurological: Positive: Alert Psychological: Positive: Age Appropriate Behavior Skin: Positive: Other - 5CM AREA OF ERYTHEMA WITH 1.5 CM CENTRALLY LOCATED FRIABLE, HEAPED UP LESION WITH PURULENT DRAINAGE. EXQUISITELY TENDER OUT OF PROPORTION TO EXAM FINDINGS Course/Dx - Course Course Of Treatment: 18-GAUGE NEEDLE USED TO UNROOF LESION ON THE RIGHT SIDE OF HEAD. PURULENT DRAINAGE EXPRESSED. SPECIMEN SENT FOR CULTURE. DUE TO THE EXQUISITE TENDERNESS THAT IS OUT OF PROPORTION TO EXAM FINDINGS AND SUSPICIOUS APPEARANCE OF THE LESION, SPECIALIST EVALUATION BY DERMATOLOGY IS WARRANTED. PYODERMA GANGRENOSUM? APPOINTMENT MADE WITH DR. ARMSTRONG AT THE [facility] LOCATION TODAY AT 2:[address] [place] [address] - Diagnoses Provider Diagnosis: Skin lesion of scalp Discharge ED - Sign-Out/Discharge Documenting (check all that apply): Patient Departure All imaging exams completed and their final reports reviewed: No Studies - Discharge Plan Condition: Stable Disposition: HOME Referrals: Ciro Bahena MD [Primary Care Provider] - If Needed [facility] Dermatology [Provider Group] Additional Instructions: I'M CONCERNED ABOUT THE APPEARANCE OF THE LESION ON THE SIDE OF YOUR HEAD. YOU WOULD BENEFIT FROM SPECIALIST EVALUATION BY DERMATOLOGY. I HAVE SCHEDULED FOR YOU TO SEE DR. ARMSTRONG WITH [facility] DERMATOLOGY AT THE [facility] OFFICE TODAY AT 2:20 PM. I DID TAKE A SWAB OF THE LESION AND HAVE SENT IT FOR BACTERIAL CULTURE. WE WILL CALL YOU WITH ANY ABNORMAL RESULTS. [facility] DERMATOLOGY [facility] LOCATION [address] [place] [address] - Billing Disposition and Condition Condition: STABLE Disposition: Home
--- NOTE | 2019-02-26 20:26 | UC ---
- Progress Note Progress Note: Patient seen here earlier today by Dr. Campos. I&D of abscess on scalp performed with wound culture sent. The patient was scheduled with Dr. Armstrong today at 2: 20pm for further evaluation of lesion. Wound culture came back MRSA +. The patient was not placed on antibiotics here. Patient needs to be called and asked about recommendation/treatment that was provided by Dr. Armstrong. A prescription for bactrim or doxycycline will need to be called in for the patient if he did not provide antibiotic which covers MRSA. Course/Dx - Diagnoses Provider Diagnoses: Skin lesion of scalp Discharge ED - Sign-Out/Discharge Documenting (check all that apply): Post-Discharge Follow Up All imaging exams completed and their final reports reviewed: No Studies - Discharge Plan Condition: Stable Disposition: HOME Referrals: [facility] Dermatology [Provider Group] Ciro Bahena MD [Primary Care Provider] - If Needed Additional Instructions: I'M CONCERNED ABOUT THE APPEARANCE OF THE LESION ON THE SIDE OF YOUR HEAD. YOU WOULD BENEFIT FROM SPECIALIST EVALUATION BY DERMATOLOGY. I HAVE SCHEDULED FOR YOU TO SEE DR. ARMSTRONG WITH [facility] DERMATOLOGY AT THE [facility] OFFICE TODAY AT 2:20 PM. I DID TAKE A SWAB OF THE LESION AND HAVE SENT IT FOR BACTERIAL CULTURE. WE WILL CALL YOU WITH ANY ABNORMAL RESULTS. [facility] DERMATOLOGY [facility] LOCATION [address] [place] [address] - Billing Disposition and Condition Condition: STABLE Disposition: Home
--- NOTE | 2019-02-27 10:44 | UC ---
- Progress Note Progress Note: I SPOKE WITH THE RN AT DR. ARMSTRONG'S OFFICE TO FOLLOW-UP ON THE PATIENT'S APPOINTMENT YESTERDAY. SHE WAS DIAGNOSED WITH AN INFECTED/INFLAMED CYST AND HAS BEEN SCHEDULED FOR SURGICAL EXCISION. ACCORDING TO THE RN THE PATIENT WAS PLACED ON DOXYCYCLINE 100 MG TWICE DAILY FOR 2 WEEKS. UPON REVIEW OF THE UC NOTES FROM YESTERDAY WE CALLED THE PATIENT TO INFORM HER OF HER POSITIVE MRSA CULTURE AT WHICH TIME SHE REPORTED SHE WAS NOT STARTED ON ANTIBIOTICS BY DR. ARMSTRONG SO BACTRIM WAS CALLED IN FROM HERE. I CALLED THE PATIENT TODAY TO CLARIFY WHICH MEDICATION SHE WAS TAKING AND TO ENSURE SHE IS NOT TAKING BOTH OF THEM SIMULTANEOUSLY. NO ANSWER. VOICEMAIL WAS FULL. I CALLED HER "PERSON TO NOTIFY" (JENNIE BRO) AND LEFT A MESSAGE THERE FOR HER TO CALL BACK. Course/Dx - Diagnoses Provider Diagnoses: Skin lesion of scalp Discharge ED - Sign-Out/Discharge Documenting (check all that apply): Post-Discharge Follow Up All imaging exams completed and their final reports reviewed: No Studies - Discharge Plan Condition: Stable Disposition: HOME Prescriptions: Sulfamethox/Trimethoprim DS* [Bactrim DS 800/160 TAB*] 1 tab PO BID #20 tab Referrals: [facility] [Provider Group] Jennie Bahena MD [Primary Care Provider] - If Needed Additional Instructions: I'M CONCERNED ABOUT THE APPEARANCE OF THE LESION ON THE SIDE OF YOUR HEAD. YOU WOULD BENEFIT FROM SPECIALIST EVALUATION BY DERMATOLOGY. I HAVE SCHEDULED FOR YOU TO SEE DR. ARMSTRONG WITH [facility] AT THE [facility] OFFICE TODAY AT 2:20 PM. I DID TAKE A SWAB OF THE LESION AND HAVE SENT IT FOR BACTERIAL CULTURE. WE WILL CALL YOU WITH ANY ABNORMAL RESULTS. [facility] LOCATION [address] [place] [address] - Billing Disposition and Condition Condition: STABLE Disposition: Home
== END 2019-02-26 13:51 | disposition home or self-care (01) ==
LOC: UCEAST 11:08
DX: L98.8 Other specified disorders of the skin and subcutaneous tissue (principal); B95.62 Methicillin resistant Staphylococcus aureus infection as the cause of diseases classified elsewhere; G20 Parkinson's disease
CPT/HCPCS: 10060; 87070; 87077; 87186; 87205; 87640; 87641; 99211; G0463

== ENCOUNTER 2019-04-01 17:28 | Emergency (ER) | payer OTHER ==
--- NOTE | 2019-04-01 17:49 | ED ---
Lower Extremity - HPI Summary HPI Summary: 58 year old female presents with right leg pain on Monday. States she fell Monday morning. She states pain is over the lateral aspect of the right leg. She states she is not able to place weight on the leg. She has also abrasion noted to the right arm. States that they placed a bandage on the area but did not clean area. She denies any head injury. No loss consciousness. fall was a mechanical fall. States she slipped. Denies any other injury. No neck pain. - History of Current Complaint Chief Complaint: EDExtremityLower Stated Complaint: RT LEG INJURY PER PT Time Seen by Provider: 04/01/19 17:37 Pain Intensity: 5 - Allergies/Home Medications Allergies/Adverse Reactions: Allergies Allergy/AdvReac Type Severity Reaction Status Date / Time acetaminophen Allergy See Comment Verified 04/01/19 19:23 PMH/Surg Hx/FS Hx/Imm Hx Endocrine/Hematology History: Denies: Hx Anticoagulant Therapy, Hx Diabetes Cardiovascular History: Denies: Hx Hypertension, Hx Pacemaker/ICD, Other Cardiovascular Problems/ Disorders Respiratory History: Denies: Other Respiratory Problems/Disorders GI History: Denies: Other GI Disorders History: Reports: Hx Kidney Stones - Left renal calculus Denies: Other Problems/Disorders Musculoskeletal History: Denies: Hx Osteoporosis, Other Musculoskeletal History Sensory History: Denies: Hx Contacts or Glasses, Hx Hearing Aid Opthamlomology History: Denies: Hx Contacts or Glasses Neurological History: Reports: Hx Seizures - Epilepsy-last seizure 1 month ago, had one at work-fell down stairs, Other Neuro Impairments/Disorders - 09/14/17 episode of generalized ataxia and slurred speech,seen in ED Psychiatric History: Reports: Hx Anxiety Denies: Hx Panic Disorder - Cancer History Hx Chemotherapy: No Hx Radiation Therapy: No Infectious Disease History: No Infectious Disease History: Denies: Traveled Outside the [place] in Last 30 Days - Family History Known Family History: Positive: Cardiac Disease - Social History Alcohol Use: None Hx Substance Use: No Substance Use Type: Reports: None Hx Tobacco Use: No Smoking Status (MU): Never Smoked Tobacco Review of Systems Negative: Fever Negative: Chest Pain Negative: Shortness Of Breath Positive: Myalgia - right leg pain Positive: Other - abrasion to right leg All Other Systems Reviewed And Are Negative: Yes Physical Exam Triage Information Reviewed: Yes Vital Signs On Initial Exam: Initial Vitals Temp Pulse Resp BP Pulse Ox 98.6 F 86 17 117/78 98 04/01/19 17:28 04/01/19 17:28 04/01/19 17:28 04/01/19 17:28 04/01/19 17:28 Vital Signs Reviewed: Yes Appearance: Positive: Well-Appearing Skin: Positive: Other - skin tear to right arm Head/Face: Positive: Normal Head/Face Inspection Eyes: Positive: Normal, Conjunctiva Clear ENT: Positive: Pharynx normal Respiratory/Lung Sounds: Positive: Clear to Auscultation, Breath Sounds Present Cardiovascular: Positive: Normal, RRR Musculoskeletal: Positive: Limited @ - right leg, Other - nontender right patella, tenderness over fibula head of right leg, good pulses Neurological: Positive: Normal Psychiatric: Positive: Normal Procedures - Sedation Patient Received Moderate/Deep Sedation with Procedure: No - Laceration/Wound Repair 1 Location: Other - right arm Length, Depth and Shape: skin tear 5cm by 2cm Irrigated w/ Saline (ccs): 250 Closure: SteriStrips Sterile Dressing Applied?: No - telfa and coband Diagnostics - Vital Signs Vital Signs Temp Pulse Resp BP Pulse Ox 04/01/19 17:28 98.6 F 86 17 117/78 98 - Laboratory Lab Statement: Any lab studies that have been ordered have been reviewed, and results considered in the medical decision making process. - Radiology knee Radiology Interpretation Completed By: ED Physician Summary of Radiographic Findings: no fracture tibia Radiology Interpretation Completed By: ED Physician Summary of Radiographic Findings: no fracture Lower Extremity Course/Dx - Course Course Of Treatment: 58 year old female presents with right leg pain sat. States she fell sat morning. She states pain is over the lateral aspect of the right leg. She states she is not able to place weight on the leg. She has also abrasion noted to the right arm. States that they placed a bandage on the area but did not clean area. She denies any head injury. No loss consciousness. fall was a mechanical fall. States she slipped. Denies any other injury. No neck pain. On exam has skin tear noted to her right arm. Cleaned area and placed Steri-Strips and dressing. Tender over proximal fibula of right leg. Neurovascular intact. X-ray shows no fracture. gave knee immbolizer. was able to ambulate with walker in ED with knee immbolizer applied. will have follow up with primary or ortho. patient understand and agrees with plan. - Diagnoses Differential Diagnosis/HQI/PQRI: Positive: Fracture (Closed), Other - abrasion, laceration Provider Diagnoses: Skin tear of right upper extremity, Fall, Right leg pain Discharge ED - Sign-Out/Discharge Documenting (check all that apply): Patient Departure - Discharge Plan Condition: Good Disposition: HOME Patient Education Materials: Knee Pain (ED) Referrals: iCro Bahena MD [Primary Care Provider] - Additional Instructions: Use immobilizer as needed Ice, elevate, Tylenol every 6 hours for pain Follow up with ortho or primary Return to ED if develop or any new or worsening symptoms - Billing Disposition and Condition Condition: GOOD Disposition: Home
[2019-04-01 19:40] VITALS: BP 122/78
== END 2019-04-01 19:21 | disposition home or self-care (01) ==
LOC: ED 17:28
DX: M79.604 Pain in right leg (principal); S41.111A Laceration without foreign body of right upper arm, initial encounter; W19.XXXA Unspecified fall, initial encounter; Y92.9 Unspecified place or not applicable; Z87.442 Personal history of urinary calculi
CPT/HCPCS: 99282